=== PATIENT | female | born 2000 | race Caucasian/White ===

== ENCOUNTER 2021-10-16 00:20 | Inpatient (IN) | payer MEDICAID ==
[2021-10-16] VITALS (53 sets, daily range): BP systolic 111–151; BP diastolic 59–101
[~2021-10-16] VITALS: Ht 167.7 cm; Wt 114.2 kg
[2021-10-16] MEDS ORDERED: PREN1TAB79 PO (06:19)
[2021-10-16] MEDS ORDERED: OXYTOCIN PRE-MIX DRIP 500 ML IV SCH ×2 (06:30→17:00)
[2021-10-16] MEDS ORDERED: MINERAL OIL CONCENTRATE 99.9% 15 ML UDC TOP PRN (06:30)
[2021-10-16 06:52] LABS: BASOPHILS % (AUTO) 1 % (0-10); EOSINOPHILS # (AUTO) 0.1 10^3/uL (0.0-0.3); EOSINOPHILS % (AUTO) 1 % (0-10); HEMATOCRIT 38 % (35-52); HEMOGLOBIN 12.5 g/dL (11.5-16.0); LYMPHOCYTES # (AUTO) 2.4 10^3/uL (1.0-4.0); LYMPHOCYTES % (AUTO) 31 % (12-44); MEAN CORPUSCULAR HEMOGLOBIN 28 pg (25-34); MEAN CORPUSCULAR HGB CONC 33 g/dL (32-36); MEAN CORPUSCULAR VOLUME 86 fL (80-99); MEAN PLATELET VOLUME 12.7 fL (9.0-12.2); MONOCYTES # (AUTO) 0.6 10^3/uL (0.0-1.0); MONOCYTES % (AUTO) 8 % (0-12); NEUTROPHILS # (AUTO) 4.6 10^3/uL (1.8-7.8); NEUTROPHILS % (AUTO) 59 % (42-75); PLATELET COUNT 177 10^3/uL (130-400); WHITE BLOOD COUNT 7.7 10^3/uL (4.3-11.0)
[2021-10-16 06:52] LABS: BILIRUBIN,URINE NEGATIVE (NEGATIVE); CLARITY,URINE CLEAR; COLOR,URINE YELLOW; GLUCOSE, URINE (UA) NEGATIVE (NEGATIVE); KETONES,URINE NEGATIVE (NEGATIVE); LEUKOCYTE ESTERASE ,URINE NEGATIVE (NEGATIVE); NITRITE,URINE NEGATIVE (NEGATIVE); PROTEIN,URINE NEGATIVE (NEGATIVE)
[2021-10-16] MEDS: D5 LR IV SOLUTION 1,000 ML IV SCH ×2 (06:54→14:45)
[2021-10-16 07:09] LABS: BACTERIA,URINE MODERATE /HPF
[2021-10-16 07:14] LABS: EOSINOPHILS % (MANUAL) 1 %; LYMPHOCYTES % (MANUAL) 20 %; MONOCYTES % (MANUAL) 15 %; NEUTROPHILS % (MANUAL) 64 %
[2021-10-16 07:15] LABS: RBC MORPH NORMAL
--- NOTE | 2021-10-16 08:51 | History & Physical-OB/GYN ---
TRAY UGARTE 10/16/21 0851: OB - Chief Complaint & HPI Date/Time Date of Admission: Date of Admission: Oct 16, 2021 at 05:47 Date seen by a Provider: Oct 16, 2021 Time Seen by a Provider: 08:00 Chief Complaint/History OB-Reason for Admission/Chief: Induction of Labor Hx : 2 Hx Para: 1 Hx Last Menstrual Period: 01/06/2021 Expected Date of Delivery: Oct 11, 2021 Gestational Age in Weeks: 40 Gestational Age in Days: 5 Indication for induction: post dates Admission Nurse Assessment Rev: Yes Allergies and Home Medications Allergies Coded Allergies: No Known Drug Allergies (Unverified , 10/16/21) Patient Home Medication List Home Medication List Reviewed: Yes Vit W-Ca,Fe,FA(<1 mg) ( Vitamins) 1 Each Tablet, 1 EACH PO, (Reported) Entered as Reported by: TAB RITTER on 10/16/21618 Last Action: New Order OB - History Hx of Present Care: Yes Ultrasounds: Normal mid trimester US Abnormal Ultrasound Findings: none Obstetrical Complications: None Medical Complications: None Information Pre-Hospital Medication Admins: vitamin, carafate Induced Hypertension: No Maternal Gestational Diabetes: No Hemorrhage: No Obstetrical History Hx : 2 Hx Para: 1 Hx # Term Pregnancies: 1 Hx # Pregnancies: 0 Number of Living Children: 1 Hx Termination: No Hx Multiple Gestation: No Hx Ectopic : No Hx Stillbirth: No Hx Complication: No Hx Induced Hypertens: No Hx Maternal Gestational Diabet: No Hx Hemorrhage: No Delivery History Hx Dystocia: No Hx Forceps Assisted Delivery: No Hx Vacuum Extraction Assisted: No Hx Placenta Abnormality: No Hx Distress: No Hx Large For Gestational Age I: No Hx Small for Gestational Age I: No Hx Section: No Hx Vaginal Delivery Post C-Sec: No Hx Blood Disorders: No Adverse Rxn to Tranfusion: No Patient Past Medical History GERD Trichomonas (treated) Yeast infection (treated) Social History/Family History Alcohol Use: Occasionally Uses (Prior to . ) Recreational Drug Use: No Smoking Cessation: Current every day smoker 2nd Hand Smoke Exposure: No Significant Family Hx No pertinent family history Immunizations Influenza Vaccine Up-to-Date: No; Not Current Tetanus Booster (TDap): Less than 5yrs Rubella: not immune GBS Status: Negative OB - Admission Exam Physical Exam Vitals: Vital Signs 10/16/21 10/16/21 06:29 06:37 Temp 36.2 Pulse 100 Resp 18 B/P (MAP) 128/84 (99) Pulse Ox 98 O2 Delivery Room Air Abdomen: Gravid Extremities: Normal Cervical Dilatation: 3cm (2.5) Effacement: 0% Station: -3 Membranes: Intact Amniotic Fluid: Unevaluable Heart Rate: 130's Accelerations: Accelerations Present (Mild short term variability, moderate store stock associate variability) Decelerations: No Decelerations Short Term Variability: Present (Moderate) Boggs Scoring Tool (Modified) Dilation (cm): 3-4cm (2) (2.5) Effacement (%): 0-30% (0) (30) Descent/Station: -3 (0) Cervix Consistency: Soft (2) Cervix Position: Anterior (2) Add 1 point for: Each previous vaginal delivery (1) Boggs Score: 6 Labs Laboratory Tests Test 10/16/21 06:00 10/16/21 06:10 Range/Units Urine Color YELLOW Urine Clarity CLEAR Urine pH 6.0 5-9 Urine Specific [place] >=1.030 1.016-1.022 Urine Protein NEGATIVE NEGATIVE Urine Glucose (UA) NEGATIVE NEGATIVE Urine Ketones NEGATIVE NEGATIVE Urine Nitrite NEGATIVE NEGATIVE Urine Bilirubin NEGATIVE NEGATIVE Urine Urobilinogen 0.2 < = 1.0 MG/DL Urine Leukocyte Esterase NEGATIVE NEGATIVE Urine RBC (Auto) NEGATIVE NEGATIVE Urine RBC NONE /HPF Urine WBC 2-5 /HPF Urine Squamous Epithelial Cells 2-5 /HPF Urine Renal Epithelial Cells NONE /HPF Urine Crystals NONE /LPF Urine Bacteria MODERATE H /HPF Urine Casts NONE /LPF Urine Mucus NEGATIVE /LPF Urine Culture Indicated YES White Blood Count 7.7 4.3-11.0 10^3/uL Red Blood Count 4.41 3.80-5.11 10^6/uL Hemoglobin 12.5 11.5-16.0 g/dL Hematocrit 38 35-52 % Mean Corpuscular Volume 86 80-99 fL Mean Corpuscular Hemoglobin 28 25-34 pg Mean Corpuscular Hemoglobin Concent 33 32-36 g/dL Red Cell Distribution Width 14.6 H 10.0-14.5 % Platelet Count 177 130-400 10^3/uL Mean Platelet Volume 12.7 H 9.0-12.2 fL Immature Granulocyte % (Auto) 0 % Neutrophils (%) (Auto) 59 42-75 % Lymphocytes (%) (Auto) 31 12-44 % Monocytes (%) (Auto) 8 0-12 % Eosinophils (%) (Auto) 1 0-10 % Basophils (%) (Auto) 1 0-10 % Neutrophils # (Auto) 4.6 1.8-7.8 10^3/uL Lymphocytes # (Auto) 2.4 1.0-4.0 10^3/uL Monocytes # (Auto) 0.6 0.0-1.0 10^3/uL Eosinophils # (Auto) 0.1 0.0-0.3 10^3/uL Basophils # (Auto) 0.0 0.0-0.1 10^3/uL Immature Granulocyte # (Auto) 0.0 0.0-0.1 10^3/uL Neutrophils % (Manual) 64 % Lymphocytes % (Manual) 20 % Monocytes % (Manual) 15 % Eosinophils % (Manual) 1 % Band Neutrophils % Blood Morphology Comment NORMAL OB - Assessment/Plan/Diagnosis Assessment Assessment: induction of labor Admission Dx Full term , uncomplicated Admission Status: Inpatient Order (span 2 midnights) Reason for Inpatient Admission: Induction of labor, delivery Plan Plan: Induction Induction Method: per Pitocin Protocol BEATRICE TYLER MD 10/16/21 0129: Allergies and Home Medications Allergies Coded Allergies: No Known Drug Allergies (Unverified , 10/16/21) Patient Home Medication List Vit W-Ca,Fe,FA(<1 mg) ( Vitamins) 1 Each Tablet, 1 EACH PO, (Reported) Entered as Reported by: TAB RITTER on 10/16/21 0619 Last Action: New Order Supervisory-Addendum Brief Verification & Attestation Participated in pt care: history, MDM, physical Personally performed: exam, history, MDM Care discussed with: Medical Student Procedures: n/a Verification and Attestation of Medical Student E/M Service A medical student performed and documented this service in my presence. I reviewed and verified all information documented by the medical student and made modifications to such information, when appropriate. I personally performed the physical exam and medical decision making. Beatrice Tyler, Oct 16, 2021,16:59 TRAY UGARTE Oct 16, 2021 08:51 BEATRICE TYLER MD Oct 16, 2021 16:59
[2021-10-16] MEDS ORDERED: fentaNYL INJ 100 MCG/2 ML AMP IVP PRN (12:45)
[2021-10-16] MEDS ORDERED: CATHETER FLUSH 10 ML SYR IV SCH (14:00)
[2021-10-16] MEDS ORDERED: fentaNYL 2 mcg/ml BUPIVA 0.125 100 ML ONE (14:04)
[2021-10-16] MEDS ORDERED: BUPIVACAINE 0.25% 30 ML (SENSORCAINE) VIAL ONE (14:08)
[2021-10-16] MEDS ORDERED: fentaNYL INJ 100 MCG/2 ML AMP ONE (14:08)
[2021-10-16] MEDS ORDERED: LACTATED RINGERS 1,000 ML IV ONE (14:15)
[2021-10-16] MEDS ORDERED: fentaNYL 2 mcg/ml BUPIVA 0.125 100 ML IV SCH (14:15)
[2021-10-16] MEDS ORDERED: diphenhydrAMINE 50 MG/ML INJ (BENADRYL) IV PRN (14:15)
[2021-10-16] MEDS ORDERED: CATHETER FLUSH 10 ML SYR IV PRN (14:15)
[2021-10-16] MEDS ORDERED: ONDANSETRON 4 MG/2 ML (SDV) Z0FRAN IV PRN (14:15)
[2021-10-16] MEDS ORDERED: NALOXONE 0.4 MG/ML 1 ML (NARCAN) VIAL IV PRN (14:15)
--- NOTE | 2021-10-16 16:51 | OB Labor & Delivery Record ---
Vag Delivery Note Vag Delivery Note Date of Delivery: 10/16/21 Preoperative Diagnosis: Chio Liao is a (21 /Para 2 / 1,Gestational Age (wks)40with 5 days Postoperative Diagnosis: Same Surgeon: KESHIA TYLER Customer Experience Analyst: Tayo Bush, MS3 Anesthesia: Epidural Delivery Type: Findings: Viable male infant, apgars 9/9, weight 7#10 Lacerations: none Intact placenta with 3 vessel cord. No nuchal cord, body cord or shoulder dystocia Estimated Blood Loss: 200 ml Complications: None Condition: Stable Description of Procedure: The patient is a 21 year old female who presented for induction of labor. She was admitted and informed consent was obtained. Her labor course was remarkable for face presentation. She progressed to complete dilatation and began to push. She was then set up for delivery. The infant's head was delivered atraumatically in straight face with mouth anterior position. The shoulders and remainder of the infant's body were then delivered without difficulty. Upon delivery, the infant was vigorous and placed on maternal abdomen. After a delay the cord was d oubly clamped and cut and the infant was handed off to the pediatric staff. An intact placenta with 3-vessel cord delivered via Andres and there was found to be minimal bleeding.~ Vigorous fundal massage was performed and the fundus was found to be firm. IV oxytocin was given. Examination of the vagina and perineum revealed no lacerations. Following the delivery, sponge, instrument and needle counts were correct. Mom and baby were both in stable condition in the labor suite. Vitals - Labs Vital Signs - I&O Vital Signs Date Time Temp Pulse Resp B/P (MAP) Pulse Ox O2 Delivery O2 Flow Rate FiO2 10/16/21 10:45 85 18 128/79 (95) 98 10/16/21 10:30 86 18 121/80 (94) 98 10/16/21 10:15 94 18 131/92 (105) 98 10/16/21 10:00 87 18 130/86 (101) 97 10/16/21 09:45 82 18 134/88 (103) 97 10/16/21 09:30 91 18 133/87 (102) 96 10/16/21 09:00 84 18 132/86 (101) 96 10/16/21 08:45 85 18 130/85 (100) 96 10/16/21 08:30 94 18 131/86 (101) 98 10/16/21 08:00 36.5 94 18 128/84 (99) 98 10/16/21 06:37 36.2 100 18 98 Room Air 10/16/21 06:29 36.2 100 18 128/84 (99) 98 Labs Laboratory Tests 10/16/21 06:00: Urine Color YELLOW, Urine Clarity CLEAR, Urine pH 6.0, Urine Specific [place] >=1.030, Urine Protein NEGATIVE, Urine Glucose (UA) NEGATIVE, Urine Ketones NEGATIVE, Urine Nitrite NEGATIVE, Urine Bilirubin NEGATIVE, Urine Urobilinogen 0.2, Urine Leukocyte Esterase NEGATIVE, Urine RBC (Auto) NEGATIVE, Urine RBC NONE, Urine WBC 2-5, Urine Squamous Epithelial Cells 2-5, Urine Renal Epithelial Cells NONE, Urine Crystals NONE, Urine Bacteria MODERATEH, Urine Casts NONE, Urine Mucus NEGATIVE, Urine Culture Indicated YES 10/16/21 06:10: White Blood Count 7.7, Red Blood Count 4.41, Hemoglobin 12.5, Hematocrit 38, Mean Corpuscular Volume 86, Mean Corpuscular Hemoglobin 28, Mean Corpuscular Hemoglobin Concent 33, Red Cell Distribution Width 14.6H, Platelet Count 177, Mean Platelet Volume 12.7H, Immature Granulocyte % (Auto) 0, Neutrophils (%) (Auto) 59, Lymphocytes (%) (Auto) 31, Monocytes (%) (Auto) 8, Eosinophils (%) (Auto) 1, Basophils (%) (Auto) 1, Neutrophils # (Auto) 4.6, Lymphocytes # (Auto) 2.4, Monocytes # (Auto) 0.6, Eosinophils # (Auto) 0.1, Basophils # (Auto) 0.0, Immature Granulocyte # (Auto) 0.0, Neutrophils % (Manual) 64, Lymphocytes % (Manual) 20, Monocytes % (Manual) 15, Eosinophils % (Manual) 1, Band Neutrophils , Blood Morphology Comment NORMAL 10/16/21 09:15: Membranes Rupture POSITIVE KESHIA TYLER MD Oct 16, 2021 16:51
[2021-10-16] MEDS ORDERED: MEASLES,MUMPS,RUBELLA 1 EA INJ SQ ONE (17:00)
[2021-10-16] MEDS ORDERED: BENZOCAINE/MENTHOL (DERMOPLAST) 56 ML CAN TP PRN (17:00)
[2021-10-16] MEDS ORDERED: WITCH HAZEL(TUCKS) 40 EA JAR TOP PRN (17:00)
[2021-10-16] MEDS: IBUPROFEN 600 MG (MOTRIN) TAB PO SCH ×2 (18:53→23:56)
[2021-10-16] MEDS: DOCUSATE SODIUM 100 MG (COLACE) CAP PO SCH (21:32)
[2021-10-17 04:35] VITALS: BP 120/72
[2021-10-17 06:53] LABS: BASOPHILS % (AUTO) 0 % (0-10); EOSINOPHILS # (AUTO) 0.1 10^3/uL (0.0-0.3); EOSINOPHILS % (AUTO) 1 % (0-10); HEMATOCRIT 33 % (35-52); HEMOGLOBIN 10.8 g/dL (11.5-16.0); LYMPHOCYTES # (AUTO) 2.4 10^3/uL (1.0-4.0); LYMPHOCYTES % (AUTO) 29 % (12-44); MEAN CORPUSCULAR HEMOGLOBIN 29 pg (25-34); MEAN CORPUSCULAR HGB CONC 33 g/dL (32-36); MEAN CORPUSCULAR VOLUME 87 fL (80-99); MEAN PLATELET VOLUME 12.2 fL (9.0-12.2); MONOCYTES # (AUTO) 0.8 10^3/uL (0.0-1.0); MONOCYTES % (AUTO) 9 % (0-12); NEUTROPHILS # (AUTO) 5.1 10^3/uL (1.8-7.8); NEUTROPHILS % (AUTO) 60 % (42-75); PLATELET COUNT 116 10^3/uL (130-400); WHITE BLOOD COUNT 8.4 10^3/uL (4.3-11.0)
[2021-10-17] MEDS ORDERED: MEASLES,MUMPS,RUBELLA 1 EA INJ ONE (08:40)
[2021-10-17 08:47] VITALS: BP 124/75
[2021-10-17] MEDS: IBUPROFEN 600 MG (MOTRIN) TAB PO SCH ×2 (08:49→14:51)
[2021-10-17] MEDS: DOCUSATE SODIUM 100 MG (COLACE) CAP PO SCH (08:50)
[2021-10-17] MEDS: CATHETER FLUSH 10 ML SYR IV SCH ×2 (09:13→09:38)
[2021-10-17 12:23] VITALS: BP 119/72
--- NOTE | 2021-10-17 12:32 | Anesthesia-Regional Post-Op ---
Regional Patient Condition Mental Status: Alert, Oriented x3 Circulation: Same as Pre-Op Headache: Absent Sensation: Full Recovery Motor Block: Absent Post Op Complications Complications None Follow Up Care/Instructions Patient Instructions None needed. Anesthesia/Patient Condition Patient is doing well, no complaints, stable vital signs, no apparent adverse anesthesia problems. No complications reported per nursing. JOSUÉ MURPHY CRNA Oct 17, 2021 12:32
[2021-10-17 16:30] VITALS: BP 132/80
--- NOTE | 2021-10-17 18:18 | Discharge Summary ---
Diagnosis/Chief Complaint Date of Admission Oct 16, 2021 at 05:47 Date of Discharge 10/17/21 Admission Diagnosis Admission Diagnosis Third Trimester 40 week gestation Discharge Diagnosis @ term Face presentation delivery Discharge Summary-Simple/Stand Procedures Epidural placement Discharge Physical Examination Allergies: Coded Allergies: No Known Drug Allergies (Unverified , 10/16/21) Vitals & I&Os Vital Sign - Last 12Hours Date Time Temp Pulse Resp B/P (MAP) Pulse Ox O2 Delivery O2 Flow Rate FiO2 10/17/21 16:30 36.4 84 16 132/80 (97) 97 Room Air Intake and Output 10/16/21 23:59 Intake Total 2000 ml Balance 2000 ml General Appearance: Alert, Oriented X3, Cooperative, No Acute Distress HEENT: Mucous Memb Moist/[place] Respiratory: Clear to Auscultation, Normal Air Movement Cardiovascular: Regular Rate, No Murmurs Abdominal: Normal Bowel Sounds, Soft, No Tenderness, Other (fundus firm and below umbilicus) Extremities: Other (trace edema present bilaterally) Neuro: Sensation Intact, Cranial Nerves 3-12 NL Psych/Mental Status: Mental Status NL, Mood NL Hospital Course Was the Problem List Reviewed?: Yes See final discharge diagnosis. Discussion & Recommendations 21 yo G2 now P2 delivery term male infant via @ 40.5 wga via face presentation Discharge Condition at discharge stable Instructions to patient/family Please see electronic discharge instructions given to patient. Discharge Medications Reviewed and agree with Discharge Medication list on patient's Discharge Instruction sheet Copy Copies To 1: KESHIA TYLER MD, HOLLY R MD Oct 17, 2021 18:18
[2021-10-17] MEDS ORDERED: IBUP-844 PO (18:20)
[2021-10-17] MEDS ORDERED: DOCU100C37 PO (18:20)
--- NOTE | 2021-10-17 18:20 | Discharge Summary ---
Discharge Inst-[facility] Reconcile Patient Problems Problems Reviewed?: Yes Depart Medications New, Converted or Re-Newed RX: Transmitted to Pharmacy New Medications: Docusate Sodium (Docusate Sodium) 100 Mg Capsule 100 MG PO BID, #14 CAP Ibuprofen (Ibu) 600 Mg Tablet 600 MG PO Q6HR, #90 TAB Continued Medications: Vit W-Ca,Fe,FA(<1 mg) ( Vitamins) 1 Each Tablet 1 EACH PO, TAB Follow Up/Instructions Goal/Follow Up: [address] Stark Activity Activity: Activity as Tolerated Driving Instructions: You May Drive NO SMOKING: NO SMOKING Nothing Inside Vagina: No Douching, No [place], No Tampons Diet Discharge Diet: No Restrictions Symptoms to Report to : Bleeding Excessive, Fever Over 101 Degrees F For Any Problems or Questions: Contact Your Physician LATISHA JOSHUA MD Oct 17, 2021 18:20
== END 2021-10-17 19:30 | disposition home or self-care (01) | DRG 807 ==
LOC: LDRP 05:47
PROVIDERS: ADMIT Family Medicine; ATTEND Family Medicine
PROC: 10E0XZZ Delivery of Products of Conception, External Approach (ICD-10-PCS; principal; 2021-10-16)
PROC: 3E033VJ Introduction of Other Hormone into Peripheral Vein, Percutaneous Approach (ICD-10-PCS; 2021-10-16)
DX: O48.0 Post-term pregnancy (principal); Z37.0 Single live birth; O99.334 Smoking (tobacco) complicating childbirth; O32.3XX0 Maternal care for face, brow and chin presentation, not applicable or unspecified; Z3A.40 40 weeks gestation of pregnancy; F17.210 Nicotine dependence, cigarettes, uncomplicated; Z23 Encounter for immunization
CPT/HCPCS: 36415; 81000; 84112; 85007; 85025; 85027; 86850; 86900; 86901; 87088; 90707